=== PATIENT | male | born 1960 | race Caucasian/White ===

== ENCOUNTER 2023-08-12 14:20 | Emergency (ER) | payer MEDICAID ==
[~2023-08-12] VITALS: Ht 172.7 cm; Wt 73.0 kg
[2023-08-12 14:24] VITALS: O2SAT 98
[2023-08-12] MEDS: ASPIRIN 81MG TABLET PO ONE (14:55)
[2023-08-12 15:28] LABS: BASOPHILS % 0.9 % (0.0-2.0); EOSINOPHILS % 1.1 % (0.0-5.0); HEMATOCRIT. 38.6 % (42.0-52.0); HEMOGLOBIN. 12.9 g/dL (14.0-18.0); LYMPHOCYTES % 19.7 % (20.0-50.0); MEAN CORPUSCULAR HGB CONC 33.4 g/dL (31.0-37.0); MEAN CORPUSCULAR VOLUME 98.9 fL (80.0-94.0); MEAN PLATELET VOLUME 9.8 fl (7.4-10.4); NEUTROPHILS % 68.3 % (40.0-76.0); PLATELET 190 x1000/uL (130-400); RED CELL DISTRIBUTION WIDTH 16.6 % (11.6-14.6); WHITE BLOOD COUNT 6.2 x1000/uL (4.5-11.0)
[2023-08-12 15:36] LABS: D-DIMER 0.55 mg/L FEU (<0.50); INR 0.9; PARTIAL THROMBOPLASTIN TIME 25.9 sec (23.4-31.0); PROTHROMBIN TIME 10.4 sec (9.6-11.0)
[2023-08-12 15:43] LABS: ALANINE AMINOTRANSFERASE 27 IU/L (10-49); ALBUMIN 4.8 g/dL (3.2-4.8); ASPARTATE AMINOTRANSFERASE 33 IU/L (<34); BILIRUBIN TOTAL 0.4 mg/dL (0.1-1.0); CALCIUM 10.5 mg/dL (8.7-10.4); CARBON DIOXIDE 32 mEq/L (21-32); CHLORIDE 103 mEq/L (98-107); CREATININE 1.2 mg/dL (0.6-1.3); GLUCOSE 112 mg/dL (70-105); POTASSIUM 4.2 mEq/L (3.5-5.1); PROTEIN TOTAL 7.8 g/dL (6.0-8.3); SODIUM 140 mEq/L (136-145); TROPONIN I HIGH SENSITIVITY 5 ng/L (3.0-53); UREA NITROGEN BLOOD 11 mg/dL (9-23)
[2023-08-12 15:49] LABS: ETHANOL BLOOD < 10 mg/dL (<10)
[2023-08-12 17:56] LABS: TROPONIN I HIGH SENSITIVITY 4 ng/L (3.0-53)
[2023-08-12 18:55] VITALS: TEMP 98.5
[2023-08-12 23:39] VITALS: BP 155/90; PULSE 82; RESP 15
== END 2023-08-13 01:17 ==
LOC: ER 14:41
DX: R07.9 Chest pain, unspecified (principal)
CPT/HCPCS: 80053; 80320; 83880; 83690; 85025; 85379; 85610; 85730; 84484; 36415; 71045; 93005; 99285; Z7610 ×4; G0480